=== PATIENT | male | born 1985 | race Caucasian/White ===

== ENCOUNTER 2018-12-30 15:41 | Emergency (ER) | payer SELFPAY ==
[~2018-12-30] VITALS: Ht 170.2 cm; Wt 77.6 kg
[2018-12-30 15:54] VITALS: BP 128/77; Ht 170.2 cm; Wt 77.6 kg
== END 2018-12-30 17:15 | disposition home or self-care (01) ==
LOC: ED 15:41
DX: S09.8XXA Other specified injuries of head, initial encounter (principal); W22.8XXA Striking against or struck by other objects, initial encounter; Y93.89 Activity, other specified; Y92.89 Other specified places as the place of occurrence of the external cause; Y99.8 Other external cause status

== ENCOUNTER 2019-05-05 20:03 | Emergency (ER) | payer SELFPAY ==
[~2019-05-05] VITALS: Ht 170.2 cm; Wt 74.8 kg
[2019-05-05 20:15] VITALS: Ht 170.2 cm; Wt 74.8 kg
[2019-05-06 05:59] VITALS: BP 130/91
== END 2019-05-06 05:59 | disposition home or self-care (01) ==
LOC: ED 20:03
DX: S02.2XXA Fracture of nasal bones, initial encounter for closed fracture (principal); S01.21XA Laceration without foreign body of nose, initial encounter; S09.8XXA Other specified injuries of head, initial encounter; V19.9XXA Pedal cyclist (driver) (passenger) injured in unspecified traffic accident, initial encounter; Y93.I9 Activity, other involving external motion; Y92.413 State road as the place of occurrence of the external cause; Y99.8 Other external cause status
CPT/HCPCS: J1885; Q0162